=== PATIENT | male | born 1960 | race Caucasian/White ===

== ENCOUNTER 2016-08-14 21:32 | Observation (INO) | payer OTHER ==
[2016-08-14 22:23] LABS: BASO # 0.1 K/mm3 (0.0-0.2); BASO % 0.8 % (0.2-1.0); IMM NEUT% 0.6 % (0-1); MEAN PLATELET VOLUME 8.9 fl (7.4-10.4)
[2016-08-14 22:26] LABS: ABSOLUTE NEUTROPHIL COUNT 1.6 K/mm3 (1.8-7.7); EOS % 0.5 % (0.9-2.9); HEMATOCRIT 42.5 % (32.0-52.0); HEMOGLOBIN 15.3 gm/l (14.0-18.0); LYMPH % 63.3 % (15-45); MEAN CELL VOLUME 92.4 fl (80.0-94.0); MEAN CORPUSCULAR HEMOGLOBIN 33.3 pg (27.0-31.0); MONO # 0.6 (0.0-0.8); MONO % 9.3 % (4-12); NEUT % 25.5 % (43-75); PLATELET COUNT 274 K/mm3 (130-400); RED CELL DISTRIBUTION WIDTH 12.8 % (11.5-14.5)
[2016-08-14 22:39] LABS: ALB/GLOB RATIO 1.3 (>1.0); CALCIUM 8.7 mg/dL (8.6-10.3); MAGNESIUM 2.1 mg/dL (1.9-2.7)
[2016-08-14] MEDS ORDERED: SODIUM CHLORIDE 0.9% 1,000 ML ONE (23:19)
[2016-08-14 23:26] LABS: VENOUS BLOOD GAS HCO3 21.6 mmol/L (22.0-27.0)
[2016-08-14 23:34] LABS: ACETAMINOPHEN < 10 ug/ml
[2016-08-14 23:35] LABS: SALICYLATE < 4 mg/dl (0-30)
[2016-08-14 23:57] LABS: AMPHETAMINES/METHAMPHETAMINES NEGATIVE (NEGATIVE); COCAINE NEGATIVE (NEGATIVE); MARIJUANA NEGATIVE (NEGATIVE); METHADONE NEGATIVE (NEGATIVE); OPIATES NEGATIVE (NEGATIVE); TRICYCLIC ANTIDEPRESSANTS NEGATIVE (NEGATIVE)
[2016-08-15 00:43] VITALS: BMI 31.1
[2016-08-15] MEDS ORDERED: MENTHOL/CETYLPYRD 1 EACH LOZENGE PO PRN (00:46)
[2016-08-15] MEDS ORDERED: MAGNESIUM HYDROXIDE 30 ML UDCUP PO PRN (00:46)
[2016-08-15] MEDS ORDERED: SODIUM CHLORIDE 0.9% 100 ML IV PRN (00:46)
[2016-08-15] MEDS ORDERED: BLISTEX LIPSTICK 1 EACH TP PRN (00:46)
[2016-08-15] MEDS ORDERED: LORAZEPAM 2 MG/ML 1ML SDV IV PRN (00:50)
[2016-08-15] MEDS ORDERED: EtCO2 Monitoring Set ONE (01:05)
[2016-08-15] MEDS: D5 1/2NS with 20 mEq KCL 1,000 ML IV SCH ×2 (01:26→09:20)
[2016-08-15 06:44] LABS: ALB/GLOB RATIO 1.2 (>1.0); ALBUMIN 3.1 gm/dL (3.5-5.7); CALCIUM 7.7 mg/dL (8.6-10.3)
--- NOTE | 2016-08-15 07:42 | HP ---
ELSA FITCH [id number] : 1960 DATE OF ADMISSION: August 14, 2016 IDENTIFICATION: Mr. Fitch is a 56-year-old followed by Dr. Javad Burden. CHIEF COMPLAINT: Intoxication. HISTORY OF PRESENT ILLNESS: History is obtained from the patient and from his sister. He had been staying with his sister but returned home to his mother's house on . On Monday, his sister got a message from him that he was sick but talked to him on the phone and he sounded okay. He did have some upper respiratory symptoms. On Monday, she talked to him again. He said he was fine. On Monday, their younger brother called his sister and said she needed to come see him because he was somnolent. She and her came and found the patient somnolent and intoxicated and brought him to [facility] Emergency Room. He does have a history of alcoholism for greater than 30 years. He most recently had been sober for at least one year but admits to relapsing. He admits to drinking one cup of vodka today. His sister thinks he may have been drinking since Monday. He does report cough with the upper respiratory infection, some reflux symptoms and chills but otherwise denies acute symptoms. REVIEW OF SYSTEMS: HEENT: No headaches, lightheadedness. Denies loss of consciousness. Denies problems with ears, eyes, nose or throat. RESPIRATORY: Nonproductive cough. CARDIAC: No chest pain or palpitations. GASTROINTESTINAL: Reflux, no nausea or vomiting. No diarrhea, constipation, hematochezia or melena. GENITOURINARY: No dysuria. MUSCULOSKELETAL: No complaints. CONSTITUTIONAL: He has had chills. PAST MEDICAL HISTORY: 1. Schizophrenia and bipolar affective disorder. 2. Alcoholism which had been in remission. 3. Gastroesophageal reflux disease. 4. Tremors believed to be secondary to his psychiatric medications. PAST SURGICAL HISTORY: Appendectomy. MEDICATIONS: 1. Quetiapine 300 mg orally at bedtime. 2. Depakote 500 mg in the morning and 1000 mg at bedtime. 3. Propranolol 60 mg orally three times daily. 4. Omeprazole 20 mg daily. 5. Invega Trinza injection every three months. He is not sure of the exact dose. ALLERGIES: NONE KNOWN. HABITS: No tobacco or drugs. As above, history of alcoholism but no use for at least a year until today or this weekend. SOCIAL HISTORY: He is unemployed, lives with his mother in [place] but also spends time at his sister's house in [place]. FAMILY HISTORY: His mother has diabetes. His father and a cousin of pancreatic cancer. PHYSICAL EXAMINATION: GENERAL: This is a well-nourished 56-year-old gentleman who is rather somnolent but does rouse and answer questions. VITAL SIGNS: Temperature 96.8 degrees Fahrenheit, blood pressure 101/64, pulse 73, respiratory rate 14, oxygen saturation 90% on room air, 98% on two liters by nasal cannula. HEENT: Pupils are dilated to about 4 mm, round and reactive. Reported to have lateral nystagmus in the emergency department. Oropharynx is dry. NECK: No adenopathy. CHEST: Clear to auscultation. HEART: Is regular. ABDOMEN: Is soft, nontender. Normal bowel tones, no organomegaly. EXTREMITIES: Good peripheral pulses. No cyanosis, clubbing or edema. NEUROLOGIC: Patient is somnolent but able to provide a medical history. Is oriented and shows no focal deficits. LABORATORY DATA: White blood cell count 6.3, hemoglobin and hematocrit 15.3 and 42.5, platelets 274. Blood gas pH 7.418, PCO2 34.3, PO2 92.1, bicarb 21.6. Sodium 142, potassium 3.7, chloride 107, CO2 20, BUN 9, creatinine 0.7, glucose 115, AST slightly elevated at 42, otherwise liver enzymes are normal, albumin 4.0. Toxicology, salicylates less than 4, acetaminophen less than 10, valproic acid 56, ethyl alcohol 276. Drugs of abuse pending. ELECTROCARDIOGRAM: Sinus rhythm with some minor T wave inversions. RADIOLOGY: Head CT scan, periventricular small vessel ischemic changes and some atrophy. No hemorrhage, mass effect or infarction. ASSESSMENT: Mr. Fitch is a 56-year-old with psychiatric history and alcoholism history who was brought in due to somnolence after combining alcohol with his psychiatric medications. PLAN: 1. Refer to observation in intermediate care. 2. Continue outpatient medications. 3. Wait for current intoxication and sedation to wear off. 4. CIWA protocol although I do not anticipate acute withdrawal symptoms. 5. Social work consult. 6. Venous thromboembolism risk is low. He does not require prophylaxis. 7. FULL CODE status.
--- NOTE | 2016-08-15 08:48 | CT ---
HEAD W/O CON COMPARISON: None HISTORY: 56-year-old male with bipolar disorder and schizophrenia. Altered mental status. Elevated blood alcohol. TECHNIQUE: Using a [employer] [address], images were obtained through the head. An automated dose reduction technique was used to minimize patient radiation dose. DOSE INFORMATION: CTDIvol (mGy): 51.70 DLP(mGycm): 913.10 FINDINGS: Mass: None Intracranial Hemorrhage: None Acute Infarction: None Cerebral hemispheres: Moderate atrophy with some low-attenuation in the periventricular white matter. Basal ganglia: Normal Thalami: Normal Brainstem: Normal Cerebellum: Normal Ventricles: Normal Basilar cisterns: Normal Corpus callosum: Normal Pituitary fossa: Normal Middle ears and mastoid air cells: Normal Orbits and sinuses: Normal Skull and scalp: Normal Dural sinuses and vessels: Normal IMPRESSION: Moderate cerebral atrophy with mild periventricular chronic small vessel ischemic change. No acute finding. Preliminary report by [facility] radiologist Dante Mead MD 08/14/2016 at 23:52
[2016-08-15] MEDS ORDERED: PNEUMOCOCCAL 23-VAL P-SAC VAC 0.5 ML VIAL IM V ONE (09:00)
[2016-08-15] MEDS ORDERED: DOCUSATE SODIUM 100 MG CAPSULE PO SCH (09:00)
[2016-08-15] MEDS ORDERED: PROPRANOLOL HCL 20 MG TABLET PO SCH (09:00)
[2016-08-15] MEDS ORDERED: PANTOPRAZOLE 40 MG TABLET DR PO SCH (09:00)
[2016-08-15] MEDS ORDERED: FLU VACC 2016-17 (36MO-64Y)/PF 60 MCG/0.5 ML SYRINGE IM V ONE (09:00)
[2016-08-15] MEDS ORDERED: DIVALPROEX SODIUM 250 MG TABLET.DR PO SCH ×2 (09:00→21:00)
[2016-08-15 12:07] VITALS: BP 120/81
[2016-08-15] MEDS ORDERED: QUETIAPINE FUMARATE 300 MG TABLET PO SCH (21:00)
== END 2016-08-15 15:25 | disposition home or self-care (01) ==
LOC: ED 21:32 → ICU 23:14
PROVIDERS: ADMIT Family Medicine; ATTEND Family Medicine
DX: G31.9 Degenerative disease of nervous system, unspecified (principal); F20.9 Schizophrenia, unspecified; F31.9 Bipolar disorder, unspecified; F10.21 Alcohol dependence, in remission; K21.9 Gastro-esophageal reflux disease without esophagitis; R25.1 Tremor, unspecified
CPT/HCPCS: 80307 ×3; 82803; 85025; 80305; 80053 ×2; 83735; 80164 ×3; 36415 ×2; 70450; 99285 ×2; 93005; A9270 ×2; J7030